=== PATIENT | male | born 1975 | race Caucasian/White ===

== ENCOUNTER 2016-09-06 19:18 | Emergency (ER) | payer BC ==
[2016-09-06 19:24] VITALS: BP 128/90
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
== END 2016-09-06 20:10 ==
LOC: ED 19:18
DX: Z04.1 Encounter for examination and observation following transport accident (principal); F17.220 Nicotine dependence, chewing tobacco, uncomplicated
CPT/HCPCS: 99282

== ENCOUNTER 2016-10-05 21:19 | Inpatient (IN) | payer SELFPAY ==
[2016-10-05 22:15] LABS: Hematocrit 48 % (42-52); Mean Corpuscular HGB Conc 33 g/dl (31-36); Mean Corpuscular Hemoglobin 33 pg (27-31); Mean Corpuscular Volume 99 fL (80-94); Mean Platelet Volume 8 um3 (7.4-10.4); Red Blood Count 4.88 10^6/ul (4.0-5.4); Red Cell Distribution Width 13 % (10.5-15); White Blood Count 10.3 10^3/ul (3.5-10.8)
[2016-10-05 22:25] LABS: Urine Bacteria Absent (Absent); Urine Bilirubin Negative (Negative); Urine Glucose Negative (Negative); Urine Nitrite Negative (Negative)
[2016-10-05 22:27] LABS: ALT 122 U/L (7-52); AST 107 U/L (13-39); Albumin 4.1 g/dL (3.2-5.2); Alkaline Phosphatase 80 U/L (34-104); Anion Gap 12 mmol/L (2-11); BUN/Creatinine Ratio 7.3 (8-20); Blood Urea Nitrogen 6 mg/dL (6-24); CO2 Carbon Dioxide 22 mmol/L (22-32); Calcium 9.1 mg/dL (8.6-10.3); Chloride 100 mmol/L (101-111); EGFR African American 131.9 (>60); EGFR Non-African American 102.5 (>60); Glucose 97 mg/dL (70-100); Potassium 3.6 mmol/L (3.5-5.0); Sodium 134 mmol/L (133-145); Total Protein 8.1 g/dL (6.4-8.9)
[2016-10-05 22:31] LABS: Benzodiazepine Urine Screen None Detected (None Detect)
[2016-10-05 22:46] LABS: Acetaminophen < 15 mcg/mL; Alcohol 182 mg/dL (<10); Salicylate < 2.50 mg/dL (<30)
[2016-10-05 22:57] LABS: TSH (Thyroid Stimulating Horm) 2.24 mcIU/mL (0.34-5.60)
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
[2016-10-06] MEDS ORDERED: LORazepam TAB(*) 1 MG PO ONE (06:15)
[2016-10-06] MEDS ORDERED: Ondansetron ODT TAB* 4 MG PO ONE (06:15)
[2016-10-06] MEDS ORDERED: Ondansetron ODT TAB* 4 MG ONE (06:16)
[2016-10-06] MEDS ORDERED: LORazepam TAB(*) 1 MG ONE (06:16)
--- NOTE | 2016-10-06 10:33 | ED ---
Beau Magaña Adam, scribed for Pedro Pablo Winters MD on 10/06/16 at 0943 . Progress - Progress Note Progress Note: This patient was signed out to me by Dr. Hand at 07:00. 09:30 - Patient signed voluntary admission to behavioral health unit. Condition: STABLE Course/Dx - Diagnoses Provider Diagnoses: Depression, Suicidal ideation, Acute alcohol intoxication The documentation as recorded by the Beau florence Adam accurately reflects the service I personally performed and the decisions made by me, Pedro Pablo Winters MD.
[2016-10-06] MEDS: Multivitamins/Minerals TAB PO SCH (10:55)
[2016-10-06] MEDS: Thiamine TAB* 100 MG TAB PO SCH (10:55)
[2016-10-06] MEDS: Folic Acid TAB* 1 MG PO SCH (10:55)
[2016-10-06] MEDS: LORazepam TAB(*) 1 MG PO SCH ×2 (10:56→18:10)
[2016-10-06] MEDS ORDERED: Venlafaxine EXT RELEASE CAP* 37.5 MG PO ONE (15:45)
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
[2016-10-07] MEDS: LORazepam TAB(*) 1 MG PO SCH ×5 (08:04→23:20)
[2016-10-07] MEDS: Acetaminophen TAB* 325 MG PO PRN ×3 (08:04→23:25)
[2016-10-07] MEDS: Folic Acid TAB* 1 MG PO SCH (08:05)
[2016-10-07] MEDS: Thiamine TAB* 100 MG TAB PO SCH (08:05)
[2016-10-07] MEDS: Multivitamins/Minerals TAB PO SCH (08:05)
[2016-10-07] MEDS ORDERED: Influenza VAC *QUAD* 2016-17* 0.5 ML SYRINGE IM ONE (09:00)
--- NOTE | 2016-10-07 17:11 | PN ---
Subjective - Subjective Service Type: 85438 Hosp care 15 min low complexity Objective - Appearance Appearance: Well Developed/Nourished Dysmorphic Features: No Hygiene: Normal Grooming: Disheveled - Behavior Psychomotor Activities: Abnormal-Decreased Exhibits Abnormal Movement: No - Attitude and Relatedness Attitude and Relatedness: Cooperative Eye Contact: Good - Speech Quality: Unpressured Latencies: Normal Quantity: Appropriate - Mood Patient's Decription of Mood: "Shaky" - Affect Observed Affect: Tense Affect Consistent with: Dysphoria - Thought Process Patient's Thought Process: Coherent, Goal Directed, Disorganized - mildly in context of alcohol withdrawal Thought Content: No Passive Wish, No Suicidal Planning, No Homicidal Ideation, No Paranoid Ideation - but reports excessive worries - Sensorium Experiencing Hallucinations: No, Sensorium is Clear Type of Hallucinations: Visual: No, Auditory: No, Command: No - Level of Consciousness Level of Consciousness: Lethargic Orientation: Yes Intact, Yes Orientated to Time, Yes Orientated to Place, Yes Orientated to Person - Impulse Control Impulse Control: Intact - Insight and Judgement Insight and Judgement: Fair - Group Participation Particating in Group Activities: No Group Participation Comments: alcohol withdrawal symptoms precluding participation - Medication Management Medication Management Adherence: Yes Assessment - Assessment Merits Inpatient Hospitalization: For Stabilization, Consolidate Improvements, For Discharge Planning Inpatient DSM-IV Dx: Major depressive disorder, recurrent, severe; alcohol use disorder, severe; cannabis use disorder; generalized anxiety disorder; rule out panic disorder; rule out agoraphobia. Clinical Impression: Juventino Ortiz is a 41-year-old father of four, who has been admitted due to report of suicidal ideation to cut himself with a knife at the end of a run of intensification of alcohol intoxication lasting for about a week atop months of chronic alcohol abuse. He has had multiple recent stressors including finalization of his divorce as the last of a series of setbacks starting with a DUI that he says stems from having used Ativan 3 days before the event and continuing to use Prozac through that event. He also lost his job in the interim between the DUI and the finalization of divorce. He is despairing about his future, but he does state that he wants to go to alcohol rehab services to reestablish sobriety and wants to move forward after that with treatment at [facility]. We have discussed antidepressant medications including return to nortriptyline or change to medication with less likelihood of lethality in overdose. We have decided upon Effexor as a reasonable trial, given its noradrenergic tone at higher doses, which may give similar efficacy as what he had with a tricyclic antidepressant. He reports that he has not done well on the Prozac he had been taking and feels odd on it. We will be encouraging him to make use of therapeutic milieu and groups. We will be gathering collateral from his brother in particular and from any others we may identify as able to clarify his safety concerns, his drinking patterns, his history, and so on. 10.07.16 Juventino still in active withdrawal from alcohol. Met with medicaid navigator, which will make aftercare fungible. Looking forward to rehab. Requests that we continue Effexor. Reports poor sleep. Plan - Plan Treatment Plan: Name: JUVENTINO ORTIZ Birthdate: 1975 [id number] Continue WAM. Start Effexor at low dose. Monitor MS and safety. Plan toward rehab at end of detox. Medications: Current Medications Acetaminophen (Tylenol Tab*) 650 mg PO Q4H PRN PRN Reason: PAIN Last Admin: 10/07/16 12:09 Dose: 650 mg Folic Acid (Folvite Tab*) 1 mg PO DAILY [facility] Last Admin: 10/07/16 08:05 Dose: 1 mg Lorazepam (Ativan Tab(*)) 0 mg PO .PER WAM SCORE [facility] PRN Reason: Protocol Last Admin: 10/07/16 15:14 Dose: 2 mg Multivitamins/Minerals (Theragran/Minerals Tab*) 1 tab PO DAILY [facility] Last Admin: 10/07/16 08:05 Dose: 1 tab Nicotine (Nicotine Inhaler*) 10 mg INH Q2H PRN PRN Reason: CRAVING Thiamine HCl (Vitamin B-1 Tab*) 100 mg PO DAILY [facility] Last Admin: 10/07/16 08:05 Dose: 100 mg - Discharge Plan Discharge Plan: Drug/Alcohol Rehab
[2016-10-07] MEDS ORDERED: Venlafaxine EXT RELEASE CAP* 37.5 MG PO ONE (17:18)
[2016-10-07] MEDS ORDERED: Mouth Piece, Nicotine* 1 EACH CARTRIDGE ONE (18:30)
[2016-10-07] MEDS: Nicotine Inhaler* 10 MG AMP INH PRN (18:31)
[2016-10-08] MEDS: LORazepam TAB(*) 1 MG PO SCH ×4 (07:45→21:25)
[2016-10-08] MEDS: Thiamine TAB* 100 MG TAB PO SCH (07:47)
[2016-10-08] MEDS: Folic Acid TAB* 1 MG PO SCH (07:47)
[2016-10-08] MEDS: Venlafaxine EXT RELEASE CAP* 37.5 MG PO SCH (07:47)
[2016-10-08] MEDS: Multivitamins/Minerals TAB PO SCH (07:47)
--- NOTE | 2016-10-08 08:56 | PN ---
Subjective - Subjective Service Type: [id number] Hosp care 15 min low complexity Subjective: Juventino reports feeling tired, vomited again this morning, is familiar with this as part of past alcohol withdrawal episodes. He says he feels he is starting to 'break through', but seemed confused when I asked him to explain. He agreed when I said it sounded like he was saying he was at a turning point in the detox process. He reports 'paranoia' as worrying about paying bills and other obligations he cannot attend to. Objective - Appearance Appearance: Well Developed/Nourished Dysmorphic Features: No Hygiene: Mal-odorous Grooming: Disheveled - Behavior Psychomotor Activities: Abnormal-Decreased - staying in bed Exhibits Abnormal Movement: No - Attitude and Relatedness Attitude and Relatedness: Cooperative Eye Contact: Good - Speech Quality: Unpressured Latencies: Normal Quantity: Terse - Mood Patient's Decription of Mood: "Tired... I think I'm starting to break through. I'm more sweaty." - Affect Observed Affect: Depressed Affect Consistent with: Dysphoria - Thought Process Patient's Thought Process: Coherent, Goal Directed Thought Content: No Passive Wish, No Suicidal Planning, No Homicidal Ideation, No Paranoid Ideation - worries reported as paranoia - Sensorium Experiencing Hallucinations: No, Sensorium is Clear Type of Hallucinations: Visual: No, Auditory: No, Command: No - Level of Consciousness Level of Consciousness: Alert Orientation: Yes Intact, Yes Orientated to Time, Yes Orientated to Place, Yes Orientated to Person - Impulse Control Impulse Control: Intact - Insight and Judgement Insight and Judgement: Fair - Group Participation Particating in Group Activities: No - Medication Management Medication Management Adherence: Yes Assessment - Assessment Merits Inpatient Hospitalization: For Immediate Safety, For Stabilization, For Discharge Planning, Pending Safe DC Plan Inpatient DSM-IV Dx: Major depressive disorder, recurrent, severe; alcohol use disorder, severe; cannabis use disorder; generalized anxiety disorder; rule out panic disorder; rule out agoraphobia. Clinical Impression: Juventino Ortiz is a 41-year-old father of four, who has been admitted due to report of suicidal ideation to cut himself with a knife at the end of a run of intensification of alcohol intoxication lasting for about a week atop months of chronic alcohol abuse. He has had multiple recent stressors including finalization of his divorce as the last of a series of setbacks starting with a DUI that he says stems from having used Ativan 3 days before the event and continuing to use Prozac through that event. He also lost his job in the interim between the DUI and the finalization of divorce. He is despairing about his future, but he does state that he wants to go to alcohol rehab services to reestablish sobriety and wants to move forward after that with treatment at [facility]. We have discussed antidepressant medications including return to nortriptyline or change to medication with less likelihood of lethality in overdose. We have decided upon Effexor as a reasonable trial, given its noradrenergic tone at higher doses, which may give similar efficacy as what he had with a tricyclic antidepressant. He reports that he has not done well on the Prozac he had been taking and feels odd on it. We will be encouraging him to make use of therapeutic milieu and groups. We will be gathering collateral from his brother in particular and from any others we may identify as able to clarify his safety concerns, his drinking patterns, his history, and so on. 4.4.17 Juvnetino still in active withdrawal from alcohol. Met with medicaid navigator, which will make aftercare fungible. Looking forward to rehab. Requests that we continue Effexor. Reports poor sleep. 4.5.17 Juventino is in active withdrawal and so too impaired still to attend groups. We have started Effexor XR 37.5 and will titrate upward in a couple days as he completes detox. He remains committed to rehab. Plan - Plan Treatment Plan: Name: JUVENTINO ORTIZ Birthdate: 1975 [id number] Continue WAM. Start Effexor at low dose. Monitor MS and safety. Plan toward rehab at end of detox. Medications: Current Medications Acetaminophen (Tylenol Tab*) 650 mg PO Q4H PRN PRN Reason: PAIN Last Admin: 10/07/16 23:25 Dose: 650 mg Folic Acid (Folvite Tab*) 1 mg PO DAILY [facility] Last Admin: 10/08/16 07:47 Dose: 1 mg Lorazepam (Ativan Tab(*)) 0 mg PO .PER WAM SCORE [facility] PRN Reason: Protocol Last Admin: 10/08/16 07:45 Dose: 2 mg Multivitamins/Minerals (Theragran/Minerals Tab*) 1 tab PO DAILY [facility] Last Admin: 10/08/16 07:47 Dose: 1 tab Nicotine (Nicotine Inhaler*) 10 mg INH Q2H PRN PRN Reason: CRAVING Last Admin: 10/07/16 18:31 Dose: 10 mg Thiamine HCl (Vitamin B-1 Tab*) 100 mg PO DAILY [facility] Last Admin: 10/08/16 07:47 Dose: 100 mg Venlafaxine HCl (Effexor Xr Cap*) 37.5 mg PO DAILY [facility] Last Admin: 10/08/16 07:47 Dose: 37.5 mg - Discharge Plan Discharge Plan: Drug/Alcohol Rehab
[2016-10-08] MEDS: Acetaminophen TAB* 325 MG PO PRN (12:00)
[2016-10-09] MEDS: LORazepam TAB(*) 1 MG PO SCH ×5 (05:20→20:42)
[2016-10-09] MEDS: Thiamine TAB* 100 MG TAB PO SCH (09:32)
[2016-10-09] MEDS: Folic Acid TAB* 1 MG PO SCH (09:32)
[2016-10-09] MEDS: Multivitamins/Minerals TAB PO SCH (09:32)
[2016-10-09] MEDS: Venlafaxine EXT RELEASE CAP* 37.5 MG PO SCH (09:32)
[2016-10-09] MEDS: Nicotine Inhaler* 10 MG AMP INH PRN ×3 (09:33→21:39)
--- NOTE | 2016-10-09 09:59 | PN ---
Subjective - Subjective Service Type: 55354 Hosp care 15 min low complexity Subjective: Gabriel reports continued anxiety, insomnia in context of active detox. Mood reported to be affected by this day the anniversary of learning in this hospital that his mother had just . Awoke in middle of night to hypnopompic hallucination that he was going out to get [place] beers. Feeling a little better today as detox progresses. Reports passive SI as children would be better off without him after what he has put them through. Objective - Appearance Appearance: Well Developed/Nourished, Healthy Appearing Dysmorphic Features: No Hygiene: Normal Grooming: Fairly Well Kept - Behavior Psychomotor Activities: Normal - which is improved from yesterday Exhibits Abnormal Movement: No - Attitude and Relatedness Attitude and Relatedness: Well Related Eye Contact: Good - Speech Quality: Unpressured Latencies: Normal Quantity: Appropriate - Mood Patient's Decription of Mood: "So so... it's a little melancholy." - Cites influence of recollection of this day as anniversary of mother's in this hospital. - Affect Observed Affect: Depressed Affect Consistent with: Dysphoria - Thought Process Patient's Thought Process: Coherent, Goal Directed Thought Content: Yes Passive Wish, No Suicidal Planning, No Homicidal Ideation, No Paranoid Ideation - Sensorium Experiencing Hallucinations: No, Sensorium is Clear Type of Hallucinations: Visual: No, Auditory: No, Command: No - Level of Consciousness Level of Consciousness: Alert Orientation: Yes Intact, Yes Orientated to Time, Yes Orientated to Place, Yes Orientated to Person - Group Participation Particating in Group Activities: No Group Participation Comments: declined AA last night, just attended community meeting today - Medication Management Medication Management Adherence: Yes Assessment - Assessment Merits Inpatient Hospitalization: For Immediate Safety, For Stabilization, For Discharge Planning, Pending Safe DC Plan Inpatient DSM-IV Dx: Major depressive disorder, recurrent, severe; alcohol use disorder, severe; cannabis use disorder; generalized anxiety disorder; rule out panic disorder; rule out agoraphobia. Clinical Impression: Juventino Ortiz is a 41-year-old father of four, who has been admitted due to report of suicidal ideation to cut himself with a knife at the end of a run of intensification of alcohol intoxication lasting for about a week atop months of chronic alcohol abuse. He has had multiple recent stressors including finalization of his divorce as the last of a series of setbacks starting with a DUI that he says stems from having used Ativan 3 days before the event and continuing to use Prozac through that event. He also lost his job in the interim between the DUI and the finalization of divorce. He is despairing about his future, but he does state that he wants to go to alcohol rehab services to reestablish sobriety and wants to move forward after that with treatment at [facility]. We have discussed antidepressant medications including return to nortriptyline or change to medication with less likelihood of lethality in overdose. We have decided upon Effexor as a reasonable trial, given its noradrenergic tone at higher doses, which may give similar efficacy as what he had with a tricyclic antidepressant. He reports that he has not done well on the Prozac he had been taking and feels odd on it. We will be encouraging him to make use of therapeutic milieu and groups. We will be gathering collateral from his brother in particular and from any others we may identify as able to clarify his safety concerns, his drinking patterns, his history, and so on. 4.4.17 Juventino still in active withdrawal from alcohol. Met with medicaid navigator, which will make aftercare fungible. Looking forward to rehab. Requests that we continue Effexor. Reports poor sleep. 4.5.17 Juventino is in active withdrawal and so too impaired still to attend groups. We have started Effexor XR 37.5 and will titrate upward in a couple days as he completes detox. He remains committed to rehab. 4.6.17 Gabriel reports impact of recall of mother's , melancholy today, with passive SI. Remains committed to rehab once detox complete and insurance established for it. Detoxing still, scoring on WAM. Will increase Effexor XR to 75 mg today. Prominent complaint of anxiety today in context of active detox. Plan - Plan Treatment Plan: Name: JUVENTINO ORTIZ Birthdate: 1975 [id number] Continue WAM and Effexor XR, increased 37.5 to 75 mg. Add clonidine 0.1 HS for insomnia/nightmares. Monitor MS and safety. Plan toward rehab at end of detox contingent on insurance in place. Medications: Current Medications Acetaminophen (Tylenol Tab*) 650 mg PO Q4H PRN PRN Reason: PAIN Last Admin: 10/08/16 12:00 Dose: 650 mg Folic Acid (Folvite Tab*) 1 mg PO DAILY [facility] Last Admin: 10/09/16 09:32 Dose: 1 mg Lorazepam (Ativan Tab(*)) 0 mg PO .PER WAM SCORE [facility] PRN Reason: Protocol Last Admin: 10/09/16 05:20 Dose: 2 mg Multivitamins/Minerals (Theragran/Minerals Tab*) 1 tab PO DAILY [facility] Last Admin: 10/09/16 09:32 Dose: 1 tab Nicotine (Nicotine Inhaler*) 10 mg INH Q2H PRN PRN Reason: CRAVING Last Admin: 10/09/16 09:33 Dose: 10 mg Thiamine HCl (Vitamin B-1 Tab*) 100 mg PO DAILY [facility] Last Admin: 10/09/16 09:32 Dose: 100 mg Venlafaxine HCl (Effexor Xr Cap*) 37.5 mg PO DAILY [facility] Last Admin: 10/09/16 09:32 Dose: 37.5 mg - Discharge Plan Discharge Plan: Drug/Alcohol Rehab
--- NOTE | 2016-10-09 14:07 | PN ---
[facility]: Group Therapy Note - Service Type Service Type: 59211 Group Psychotherapy - Cognitive Behavioral Group Therapy ( CBT):Patient was attentive and participatory in CBT programming this morning, and remained in good behavioral control. Patient expressed positive insights regarding relevant treatment interventions and goals.
[2016-10-09] MEDS: Acetaminophen TAB* 325 MG PO PRN (15:31)
[2016-10-10] MEDS: LORazepam TAB(*) 1 MG PO SCH (07:39)
[2016-10-10] MEDS: Thiamine TAB* 100 MG TAB PO SCH (08:42)
[2016-10-10] MEDS: Venlafaxine EXT RELEASE CAP* 37.5 MG PO SCH (08:42)
[2016-10-10] MEDS: Folic Acid TAB* 1 MG PO SCH (08:42)
[2016-10-10] MEDS: Multivitamins/Minerals TAB PO SCH (08:42)
[2016-10-10] MEDS: Nicotine Inhaler* 10 MG AMP INH PRN ×3 (11:13→22:43)
--- NOTE | 2016-10-10 12:47 | PN ---
Subjective - Subjective Service Type: 13752 Hosp care 15 min low complexity Subjective: Juventino reports doing "better." He notes subjective progress in terms of withdrawal severity. His outlook is "good" and he denies wishes or troubling emotional pain. He expresses motivation for rehab and sobriety - we explored his prior experiences and motivations. He was interested in medication for symptoms. We reviewed decision for off label clonidine use - I went over its profile and he reported prior good result with it. And he consented to gabapentin off label for anxiety, withdrawal, after review of its profile. Objective - Appearance Appearance: Obese Hygiene: Normal Grooming: Well Kept - Behavior Psychomotor Activities: Normal - Attitude and Relatedness Attitude and Relatedness: Cooperative Eye Contact: Good - Speech Quality: Unpressured Latencies: Normal Quantity: Appropriate - Mood Patient's Decription of Mood: "Anxious" - Affect Observed Affect: Tense Affect Consistent with: Dysphoria - mild - Thought Process Patient's Thought Process: Coherent Thought Content: No Passive Wish, No Suicidal Planning, No Homicidal Ideation, No Paranoid Ideation - Sensorium Experiencing Hallucinations: No, Sensorium is Clear - Level of Consciousness Level of Consciousness: Alert - Impulse Control Impulse Control: Intact - Insight and Judgement Insight and Judgement: Fair Assessment - Assessment Merits Inpatient Hospitalization: For Immediate Safety, For Stabilization, To Initiate Treatment, For Ongoing Evaluation, Consolidate Improvements, For Discharge Planning, Pending Safe DC Plan Inpatient DSM-IV Dx: Major depressive disorder, recurrent, severe; alcohol use disorder, severe; cannabis use disorder; generalized anxiety disorder; rule out panic disorder; rule out agoraphobia. Clinical Impression: 41 y/o male with history of prior psychiatric hospitalization, suicidal behavior , cerebrovascular event, concussions, and chronic severe substance use disorders. He was admitted after coming to the ED by car and reporting parasuicidal behavior in the setting of mood symptoms and impairing substance use pattern. Stabilizing here. Safe on checks, free of ongoing suicidal ideation. Mood symptoms and outlook are improving, impairment is reduced. Is progressing through alcohol withdrawal, with support via [facility] protocol. Medication mgt. started Effexor for depression, anxiety, and clonidine off label for sleep symptoms. And will start gabapentin off label for protracted withdrawal sxs and anxiety. Plan - Plan Treatment Plan: Name: JUVENTINO ORTIZ Birthdate: 1975 [id number] Continued Medication Management: Start Medication Medications: Current Medications Acetaminophen (Tylenol Tab*) 650 mg PO Q4H PRN PRN Reason: PAIN Last Admin: 10/09/16 15:31 Dose: 650 mg Folic Acid (Folvite Tab*) 1 mg PO DAILY [facility] Last Admin: 10/10/16 08:42 Dose: 1 mg Lorazepam (Ativan Tab(*)) 0 mg PO .PER WAM SCORE [facility] PRN Reason: Protocol Last Admin: 10/10/16 07:39 Dose: 3 mg Multivitamins/Minerals (Theragran/Minerals Tab*) 1 tab PO DAILY [facility] Last Admin: 10/10/16 08:42 Dose: 1 tab Nicotine (Nicotine Inhaler*) 10 mg INH Q2H PRN PRN Reason: CRAVING Last Admin: 10/10/16 11:13 Dose: 10 mg Thiamine HCl (Vitamin B-1 Tab*) 100 mg PO DAILY [facility] Last Admin: 10/10/16 08:42 Dose: 100 mg Venlafaxine HCl (Effexor Xr Cap*) 37.5 mg PO DAILY [facility] Last Admin: 10/10/16 08:42 Dose: 37.5 mg - Discharge Plan Discharge Plan: Drug/Alcohol Rehab
[2016-10-10] MEDS: Gabapentin CAP(*) 300 MG PO SCH ×2 (15:38→20:07)
[2016-10-10] MEDS: cloNIDine TAB* 0.1 MG PO SCH (20:07)
[2016-10-11] MEDS: Nicotine Inhaler* 10 MG AMP INH PRN ×6 (05:59→18:45)
[2016-10-11] MEDS: Gabapentin CAP(*) 300 MG PO SCH ×3 (08:09→20:07)
[2016-10-11] MEDS: Venlafaxine EXT RELEASE CAP* 37.5 MG PO SCH (08:09)
[2016-10-11] MEDS: Folic Acid TAB* 1 MG PO SCH (08:10)
[2016-10-11] MEDS: Multivitamins/Minerals TAB PO SCH (08:10)
[2016-10-11] MEDS: Thiamine TAB* 100 MG TAB PO SCH (08:10)
[2016-10-11] MEDS: cloNIDine TAB* 0.1 MG PO SCH (20:07)
[2016-10-12] MEDS: Nicotine Inhaler* 10 MG AMP INH PRN ×6 (05:41→20:05)
[2016-10-12] MEDS: Folic Acid TAB* 1 MG PO SCH (08:08)
[2016-10-12] MEDS: Thiamine TAB* 100 MG TAB PO SCH (08:08)
[2016-10-12] MEDS: Venlafaxine EXT RELEASE CAP* 37.5 MG PO SCH (08:09)
[2016-10-12] MEDS: Multivitamins/Minerals TAB PO SCH (08:09)
[2016-10-12] MEDS: Gabapentin CAP(*) 300 MG PO SCH ×3 (08:09→20:05)
--- NOTE | 2016-10-12 11:48 | PN ---
Subjective - Subjective Service Type: 16486 Hosp care 15 min low complexity Subjective: I reviewed Ami Montero's and Cassius's signout and notes since Thursday afternoon. Staff notes indicate 5+ hrs of sleep/night. We briefly reviewed events leading to hospitalization. His mood today is "better" and rates depression as 4-5/10 and anxiety as 8/10 (10 being the worst) . Notes poor sleep and requests to start a medication (trazodone caused GERD in the past). Notes some fatigue associated with gabapentin but denies other medication side effects. Appetite is "better." Is future oriented and we discussed plans in the coming weeks. He denies SI or thoughts of self-harm. He denies thoughts of harming others. He remains interested in Rehab. We discussed medication options for alcohol use d/o. Objective - Appearance Appearance: Well Developed/Nourished - overweight, tattoos. Found in milieu watching movie Dysmorphic Features: No Hygiene: Normal Grooming: Well Kept - Behavior Psychomotor Activities: Normal Exhibits Abnormal Movement: No - Attitude and Relatedness Attitude and Relatedness: Cooperative Eye Contact: Good - Speech Quality: Unpressured Latencies: Normal Quantity: Copious - Mood Patient's Decription of Mood: "better" - Affect Observed Affect: Tearful - when talking about events leading to hospitalization Affect Consistent with: Euthymia - with some depression - Thought Process Patient's Thought Process: Coherent Thought Content: No Passive Wish, No Suicidal Planning, No Homicidal Ideation, No Paranoid Ideation - Sensorium Experiencing Hallucinations: No, Sensorium is Clear - Level of Consciousness Level of Consciousness: Alert Orientation: Yes Intact, Yes Orientated to Time, Yes Orientated to Place, Yes Orientated to Person - Impulse Control Impulse Control: Intact - Insight and Judgement Insight and Judgement: Fair - Medication Management Medication Management Adherence: Yes - Additional Observations Comments: Vital Signs 10/11/16 10/11/16 10/11/16 12:45 14:09 16:07 Temperature Pulse Rate Respiratory 16 16 16 Rate Blood Pressure (mmHg) O2 Sat by Pulse Oximetry 10/11/16 10/12/16 10/12/16 20:07 07:17 08:01 Temperature 97.1 F Pulse Rate 62 Respiratory 16 16 16 Rate Blood Pressure 105/69 (mmHg) O2 Sat by Pulse 100 Oximetry 10/12/16 10/12/16 08:09 10:09 Temperature Pulse Rate Respiratory 16 16 Rate Blood Pressure (mmHg) O2 Sat by Pulse Oximetry Assessment - Assessment Merits Inpatient Hospitalization: Consolidate Improvements, For Discharge Planning, Pending Safe DC Plan Inpatient DSM-IV Dx: Major depressive disorder, recurrent, severe; alcohol use disorder, severe; cannabis use disorder; generalized anxiety disorder; rule out panic disorder; rule out agoraphobia. Clinical Impression: 41yo male with a hx of alcohol use and multiple psychosocial stressors d/o admitted for SI. He was started on an SNRI. Plan is to go to Rehab. Plan - Plan Treatment Plan: Name: SHAWN ORTIZ Birthdate: 1975 [id number] - continue SNRI - continue gabapentin for extended alcohol w/d - d/c WAM - d/c clonidine. Add mirtazapine 15mg po qhs. We discussed risks/side effects, he understands these risks, and consents to take the medication at this time. - start naltrexone 50mg daily for alcohol use d/o. He denies recent opioid use. We discussed risks/side effects, he understands these risks, and consents to take the medication at this time. To recheck CMP today. To d/c if LFTs increased and are not trending down - to go to Rehab Medications: Current Medications Acetaminophen (Tylenol Tab*) 650 mg PO Q4H PRN PRN Reason: PAIN Last Admin: 10/09/16 15:31 Dose: 650 mg Clonidine HCl (Catapres Tab*) 0.1 mg PO BEDTIME [facility] Last Admin: 10/11/16 20:07 Dose: 0.1 mg Folic Acid (Folvite Tab*) 1 mg PO DAILY [facility] Last Admin: 10/12/16 08:08 Dose: 1 mg Gabapentin (Neurontin Cap(*)) 300 mg PO TID [facility] Last Admin: 10/12/16 08:09 Dose: 300 mg Lorazepam (Ativan Tab(*)) 0 mg PO .PER WAM SCORE [facility] PRN Reason: Protocol Last Admin: 10/10/16 07:39 Dose: 3 mg Multivitamins/Minerals (Theragran/Minerals Tab*) 1 tab PO DAILY [facility] Last Admin: 10/12/16 08:09 Dose: 1 tab Nicotine (Nicotine Inhaler*) 10 mg INH Q2H PRN PRN Reason: CRAVING Last Admin: 10/12/16 10:11 Dose: 10 mg Thiamine HCl (Vitamin B-1 Tab*) 100 mg PO DAILY [facility] Last Admin: 10/12/16 08:08 Dose: 100 mg Venlafaxine HCl (Effexor Xr Cap*) 37.5 mg PO DAILY [facility] Last Admin: 10/12/16 08:09 Dose: 37.5 mg
[2016-10-12] MEDS ORDERED: Naltrexone (NF) 50 MG TAB PO SCH (13:00)
[2016-10-12 13:20] LABS: BUN/Creatinine Ratio 19.4 (8-20); Calcium 9.2 mg/dL (8.6-10.3); EGFR African American 107.4 (>60); EGFR Non-African American 83.5 (>60); Globulin 3.5 g/dL (2-4); Potassium 4.3 mmol/L (3.5-5.0); Total Bilirubin 0.6 mg/dL (0.2-1.0); Total Protein 7.5 g/dL (6.4-8.9)
[2016-10-12] MEDS ORDERED: Naltrexone (NF) 50 MG TAB PO ONE (14:45)
[2016-10-12] MEDS ORDERED: Mirtazapine TAB* 15 MG PO SCH (21:00)
[2016-10-13] MEDS: Nicotine Inhaler* 10 MG AMP INH PRN ×2 (06:13→08:33)
[2016-10-13] MEDS: Thiamine TAB* 100 MG TAB PO SCH (07:55)
[2016-10-13] MEDS: Venlafaxine EXT RELEASE CAP* 37.5 MG PO SCH (07:55)
[2016-10-13] MEDS: Multivitamins/Minerals TAB PO SCH (07:55)
[2016-10-13] MEDS: Gabapentin CAP(*) 300 MG PO SCH (07:55)
[2016-10-13] MEDS: Folic Acid TAB* 1 MG PO SCH (07:56)
--- NOTE | 2016-10-13 08:14 | PN ---
Subjective - Subjective Service Type: 70653 Hosp care 15 min low complexity Assessment - Assessment Inpatient DSM-IV Dx: Major depressive disorder, recurrent, severe; alcohol use disorder, severe; cannabis use disorder; generalized anxiety disorder; rule out panic disorder; rule out agoraphobia. Clinical Impression: 41 y/o male with history of prior psychiatric hospitalization, suicidal behavior , cerebrovascular event, concussions, and chronic severe substance use disorders. He was admitted after coming to the ED by car and reporting parasuicidal behavior in the setting of mood symptoms and impairing substance use pattern. Stabilizing here. Safe on checks, free of ongoing suicidal ideation. Mood symptoms and outlook are improving, impairment is reduced. Is progressing through alcohol withdrawal, with support via [facility] protocol. Medication mgt. started Effexor for depression, anxiety, and clonidine off label for sleep symptoms. And will start gabapentin off label for protracted withdrawal sxs and anxiety. Plan - Plan Treatment Plan: Name: SHAWN ORTIZ Birthdate: 1975 [id number] Medications: Current Medications Acetaminophen (Tylenol Tab*) 650 mg PO Q4H PRN PRN Reason: PAIN Last Admin: 10/09/16 15:31 Dose: 650 mg Folic Acid (Folvite Tab*) 1 mg PO DAILY [facility] Last Admin: 10/13/16 07:56 Dose: 1 mg Gabapentin (Neurontin Cap(*)) 300 mg PO TID [facility] Last Admin: 10/13/16 07:55 Dose: 300 mg Mirtazapine (Remeron Tab*) 15 mg PO BEDTIME [facility] Last Admin: 10/12/16 20:05 Dose: 15 mg Multivitamins/Minerals (Theragran/Minerals Tab*) 1 tab PO DAILY [facility] Last Admin: 10/13/16 07:55 Dose: 1 tab Nicotine (Nicotine Inhaler*) 10 mg INH Q2H PRN PRN Reason: CRAVING Last Admin: 10/13/16 06:13 Dose: 10 mg Thiamine HCl (Vitamin B-1 Tab*) 100 mg PO DAILY [facility] Last Admin: 10/13/16 07:55 Dose: 100 mg Venlafaxine HCl (Effexor Xr Cap*) 37.5 mg PO DAILY [facility] Last Admin: 10/13/16 07:55 Dose: 37.5 mg
--- NOTE | 2016-10-13 08:29 | DS ---
Subjective - Subjective Service Types: 91519 [facility] Day Mgmt simple under 30 min Discharge Date: 10/13/16 Subjective: Juventino denied setbacks over the weekend and reported feeling physically and mentally ready for rehab. He noted sustained improvements in mood and anxiety levels. We reviewed medication changes, and need for routine monitoring of his abnormal liver enzymes. Objective - Appearance Appearance: Obese Hygiene: Normal Grooming: Fairly Well Kept - Behavior Psychomotor Activities: Normal - Attitude and Relatedness Attitude and Relatedness: Cooperative Eye Contact: Good - Speech Quality: Unpressured Latencies: Normal Quantity: Terse - Mood Patient's Decription of Mood: "Fine" - Affect Observed Affect: Non-labile Affect Consistent with: Euthymia - Thought Process Patient's Thought Process: Coherent, Goal Directed Thought Content: No Passive Wish, No Suicidal Planning, No Homicidal Ideation, No Paranoid Ideation - Sensorium Experiencing Hallucinations: No, Sensorium is Clear - Level of Consciousness Level of Consciousness: Alert - Impulse Control Impulse Control: Intact - Insight and Judgement Insight and Judgement: Good Treatment Course & Assessment Clinical Course & Impression: 41 y/o male with history of prior psychiatric hospitalization, suicidal behavior , cerebrovascular event, concussions, and chronic severe substance use disorders. He was admitted after coming to the ED by car and reporting parasuicidal behavior in the setting of mood symptoms and impairing substance use pattern. 10/13/16 Clear for release. Appropriate for inpatient rehab now. 1. Behavior / symptoms: Juvetnino stabilized here. He was safe on checks, and consistently free of ongoing suicidal ideation. His mood symptoms, anxiety level, and outlook improved and he consolidated his gains. Acute impairment is corrected. 2. Medication management: Juventino received transient support with Ativan via [facility] protocol, and he progressed uneventfully through alcohol withdrawal. Psychiatric medication mgt. started Effexor for depression and anxiety, Remeron for augmentation and as sleep aid, and gabapentin off-label for protracted withdrawal symptoms and anxiety. 3. Medical: Juventino had liver enzymes several times the upper limit of normal at admission, which were repeated and still in same basic range a week later. I informally consulted hospitalist, Dr. Mcelroy, who said those values are normal for heavy drinkers and they could rise further, normally. She recommended to test acute Hepatitis Serology now, re-check liver panel (enzymes ) in one week, follow up Hepatitis serology, and arrange primary care evaluation following rehab. 4. Discharge disposition. Juventino was clearly in a substance induced crisis, and favorably accepted rehab referral and was accepted. Risk concern centered on his parasuicidal behavior and suicide risk. It is chronically elevated in a patient with his profile, with factors including organic injury, prior behavior, mood condition, substance use condition, and status loss/demographics. Acute risk of suicide is assessed as low currently due to patients low symptom burden, absence of acute impairing factors, and benign observed recent behavior and ideation. Resumed substance use could increase acute risk. Clear for Discharge: Adequate Clinical Respons, Acceptable Safety Profile, Low Utility of In Care Inpatient DSM-IV Dx: Major depressive disorder, recurrent, severe; alcohol use disorder, severe; cannabis use disorder; generalized anxiety disorder; rule out panic disorder; rule out agoraphobia. Discharge Planning - Discharge Planning Discharge Plan: Drug/Alcohol Rehab Recommendations for Continuing Care: Medication Management, Psychotherapy, Substance Abuse Counseling, Primary Care Followup - monitoring of liver function - followup of abnormal enzymes, review Serology at [facility] labs Medications: Current Medications Gabapentin (Neurontin Cap(*)) 300 mg PO TID [facility] Last Admin: 10/13/16 07:55 Dose: 300 mg Mirtazapine (Remeron Tab*) 15 mg PO BEDTIME [facility] Last Admin: 10/12/16 20:05 Dose: 15 mg Multivitamins/Minerals (Theragran/Minerals Tab*) 1 tab PO DAILY [facility] Last Admin: 10/13/16 07:55 Dose: 1 tab Nicotine (Nicotine Inhaler*) 10 mg INH Q2H PRN PRN Reason: CRAVING Last Admin: 10/13/16 06:13 Dose: 10 mg Thiamine HCl (Vitamin B-1 Tab*) 100 mg PO DAILY [facility] Last Admin: 10/13/16 07:55 Dose: 100 mg Venlafaxine HCl (Effexor Xr Cap*) 37.5 mg PO DAILY [facility] Last Admin: 10/13/16 07:55 Dose: 37.5 mg Discharge Planning: Prescriptions provided for discharge [] Yes [x] No Follow up care details as per social work arrangements. Patient response to discharge plan: [] eager for discharge [x] agreeable with discharge plan [] ambivalent about discharge [] disagrees with discharge today
[2016-10-13 08:36] VITALS: BP 119/68
== END 2016-10-13 09:05 | DRG 885 ==
LOC: ED 21:19 → BSU 10-06 10:44
PROVIDERS: ADMIT Psychiatry & Neurology Psychiatry; ATTEND Psychiatry & Neurology Psychiatry
DX: F33.2 Major depressive disorder, recurrent severe without psychotic features (principal); R45.851 Suicidal ideations; I10 Essential (primary) hypertension; F10.10 Alcohol abuse, uncomplicated; F12.10 Cannabis abuse, uncomplicated; Y90.6 Blood alcohol level of 120-199 mg/100 ml; F41.1 Generalized anxiety disorder; Z86.73 Personal history of transient ischemic attack (TIA), and cerebral infarction without residual deficits; Z79.2 Long term (current) use of antibiotics; Z79.899 Other long term (current) drug therapy
CPT/HCPCS: 36415; 80053; 80074; 80307; 80320; 80329; 81003; 81015; 84443; 85025; 87086; 90686; 90853; 99222; 99231; 99238; A9270-GY; G0480

== ENCOUNTER 2017-06-11 14:42 | Emergency (ER) | payer OTHER ==
[2017-06-11 15:29] LABS: Hemoglobin 15.6 g/dl (14.0-18.0); Mean Corpuscular HGB Conc 35 g/dl (31-36); Red Cell Distribution Width 13 % (10.5-15); White Blood Count 7.8 10^3/ul (3.5-10.8)
[2017-06-11 15:33] LABS: Hematocrit 45 % (42-52); Mean Corpuscular Hemoglobin 32 pg (27-31); Mean Corpuscular Volume 91 fL (80-94); Mean Platelet Volume 9 um3 (7.4-10.4); Red Blood Count 4.94 10^6/ul (4.0-5.4)
[2017-06-11 15:34] LABS: Comments Flag Yes
[2017-06-11 15:35] LABS: Venous Bicarbonate HCO3 23.9 mmol/L (24-28)
[2017-06-11] MEDS: NS 0.9% 1000 ML* 2,000 ML IV ONE ×2 (15:35→18:12)
[2017-06-11 15:42] LABS: Albumin 4.1 g/dL (3.2-5.2); BUN/Creatinine Ratio 12.1 (8-20); C Reactive Protein 11.82 mg/L (< 5.00); Calcium 8.9 mg/dL (8.6-10.3); EGFR African American 116.4 (>60); EGFR Non-African American 90.5 (>60); Globulin 3.3 g/dL (2-4); Potassium 3.6 mmol/L (3.5-5.0); Total Bilirubin 0.6 mg/dL (0.2-1.0); Total Protein 7.4 g/dL (6.4-8.9)
[2017-06-11 16:06] LABS: Urine Bilirubin Negative (Negative); Urine Glucose 3+(>=500 mg/dL) (Negative); Urine Nitrite Negative (Negative)
[2017-06-11] MEDS ORDERED: Insulin REGULAR(*) 1 UNITS UNIT IV PUSH ONE ×2 (16:12→18:05)
[2017-06-11] MEDS ORDERED: Ondansetron INJ* 2 MG/ML VIAL IV ONE (18:30)
[2017-06-11 20:37] VITALS: BP 130/88
--- NOTE | 2017-06-11 22:06 | CONS ---
[facility] MEDICINE CONSULTATION REPORT: DATE OF CONSULT: 06/11/17 - EMERGENCY DEPT PROVIDER: Ashley Sutherland NP ATTENDING PHYSICIAN: Dr. Hearn. CONSULTING PHYSICIAN: Dr. Radhames Howard. REASON FOR CONSULTATION: Evaluation for admission. HISTORY OF PRESENT ILLNESS: Mr. Stephens is a 42-year-old male that presented to the emergency room for further management of hyperglycemia. He states that he has had a 2-month history of increased nocturia, thirst, and fatigue and decreased appetite. He was seen by his primary care doctor, Dr. Eldridge on Thursday , 06/09/17 and diagnosed with diabetes. He was started on Lantus insulin 5 units in the a.m. and 10 units in the p.m. He states that his blood sugars have been as low as 225 and as high as 372 since he started checking them. He reports that he did see Dr. Eldridge today and his blood sugar in the office was 360 and so he sent him to the emergency room. He also reports that his hemoglobin A1c is 12.5. Mr. Stephens carries a past medical history that is significant for drug and alcohol abuse, which he received addiction recovery for. He states that he has been clean for 251 days now. He has a history of depression and anxiety. He denies any issues at this time with the depression or anxiety. During the current interview, he states that he is feeling better. He does complain of some mild lower abdominal tenderness. He denies any vomiting today. He reports he has had intermittent minimal amounts of diarrhea for the last several weeks. During his stay in the emergency room today, he did receive 16 units of regular insulin and his blood sugar decreased from 372 to 109 with his last Accu-Chek. PAST MEDICAL HISTORY: 1. Diabetes. 2. Alcohol abuse. 3. Drug abuse history and alcohol abuse history. 4. CVA in 2014. He does have visual deficits. 5. MRSA. He had that in his left knee in 2007. 6. Depression. 7. Anxiety. PAST SURGICAL HISTORY: 1. Left knee surgery. He had ACL reconstruction. He says that he has had several right and left knee surgeries in the past. 2. Appendectomy. MEDICATIONS: 1. Gabapentin. 2. Effexor. 3. Remeron. 4. Lantus 5 units in the a.m. and 10 units in the p.m. ALLERGIES: 1. VANCOMYCIN. 2. PROZAC. FAMILY HISTORY: Father had a significant history of coronary artery disease with an TX at 38 and 51. He did from his TX at age 51. Father also had diabetes type 1 diagnosed at age 12. Grandmother had type 1 diabetes diagnosed at age 35. SOCIAL HISTORY: He denies smoking, drug, or alcohol use. 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 REVIEW OF SYSTEMS: Constitutional: Denies fevers. Does report decreased appetite. Cardiac: No chest pain, no edema. Respiratory: Denies shortness of breath. Denies hemoptysis. He does report that he has an occasional cough that he has had for the last several months. GI: Positive for nausea. Denies vomiting. He has had a small amount of intermittent bouts of diarrhea on and off for the last few weeks. He does have some mild lower abdominal tenderness. : He denies hematuria. He does report frequency and urgency. Neuro: He has got no focal weakness or sensory loss. Eyes: He does state that he has progressively worsening visual changes since March. His last ophthalmology exam was in January. ENT: He denies difficulty swallowing. Musculoskeletal: Denies weakness. Skin: Denies rashes or lesions. He does complain of skin cracks on his bilateral heels. Psych: No psychosis or anxiety or depression. PHYSICAL EXAM: Vital signs are as follows: Blood pressure was 138/89, heart rate is sinus rhythm and in 80, respirations were 13, O2 sat was 97% on room air , temp on admission was 99.6. Conjunctivae are pink and moist. Pupils are equal and reactive. ENT: External ears and nose are normal. Lips are within normal. Dentition is good. Mucous membranes are mildly dry. Lymphatic: No cervical or supraclavicular lymphadenopathy. Cardiac: No murmurs, rubs, or gallops. He is in sinus rhythm in the 80s. Respiratory: Lung sounds are clear. No accessory muscle use. Abdomen is soft and nondistended. Bowel sounds are positive x4. He does have lower right and left quadrant tenderness with palpation. Musculoskeletal: There is no clubbing or cyanosis. He has got full range of motion to all extremities. Pedal pulses are +2 bilaterally. Radial pulses are +2 as well. Skin: There are no rashes and no abnormalities are seen. Plantar aspect of bilateral feet are noted to have dry cracking skin. Neuro: No focal deficits noted. He is alert and oriented. Mood is appropriate. No anxiety or depression is noted. DIAGNOSTIC STUDIES/LAB DATA: WBC is 7.8, RBC is 4.94, Hgb is 15.6, hematocrit is 45, platelet count is 195. Sodium was 133, potassium 3.6, chloride 101, carbon dioxide was 23, anion gap is 9, BUN is 11, creatinine is 0.91. Blood glucose on arrival to the ER was 372. After 16 units of insulin, his last blood sugar was 109. Calcium is 8.9. AST is 36, ALT is 56, alk phos was 96, albumin 4.1. C- reactive protein was 11.82. EKG showed sinus rhythm 83, no ST or T-wave changes. IMPRESSION AND PLAN: Mr. Stephens is a 42-year-old male that presented to emergency room today for evaluation of hyperglycemia to have a 2-month history of increased nocturia, thirst and fatigue and a decreased appetite. He was recently seen by his primary care doctor and diagnosed with diabetes, at which time he was started on Lantus insulin as noted in the HPI. His sugars remained uncontrolled, so he was sent to the emergency room for further evaluation. He is currently feeling well and better. I think at this time he is appropriate to be discharged home. Our recommendations are as follows: 1. Diabetes, uncontrolled hyperglycemia. Continue Lantus 5 units in the a.m. and increase night dose of Lantus to 12 units subcutaneous. I would recommend he follow up with his primary care doctor tomorrow. I also recommend that he setup an appointment with Endocrinology. He needs an evaluation from Podiatry for his dry and cracked heels. He also needs an evaluation from Ophthalmology due to the recent visual changes. 2. Alcohol abuse, currently being controlled with outpatient therapy. He has been cleaned for 251 days 3. Drug abuse. Currently pain controlled with outpatient therapy, has been cleaned for 251 days. 3. History of cerebrovascular accident, not a current issue. 4. History of depression. Currently taking Effexor. I recommend continue the Effexor at the current dose. 5. Anxiety. Continue treatment as per primary care. 6. Diet. I would recommend a carbohydrate consistent diet. 7. Disposition. I recommend he be discharged home and follow up with his primary care doctor tomorrow for further management of his diabetes. Instructed to return with any episodes of hypoglycemia and if unable to control hyperglycemia. Reports that he will have an responsible adult home with him this evening in the event he should have a diabetic emergency. The patient is in agreement with my current plan. He is fully aware of symptoms of hypoglycemia. TIME SPENT: Approximately 45 minutes was spent in this consultation of this patient, more than half that time was spent at the bedside reviewing events leading and thus far to admission to the emergency room, performing physical exam, and reviewing my plan of care. I have discussed my plan of care with my attending, Dr. Radhames Howard and he is in agreement with my plan. Dr. Lange, the emergency room attending was notified of my recommendations. ASHLEY SUTHERLAND, ADAMA [id number]/[facility] #: [id number] ELIAS
--- NOTE | 2017-06-13 18:43 | ED ---
Nicholas Magaña Angela, scribed for Pk Hearn MD on 06/11/17 at 1515 . HPI Diabetic - HPI Summary HPI Summary: This pt is a 42 y/o male presenting to [facility] for elevated glucose level. Pt has recently been diagnosed with IDDM 2 days ago. Pt was started on Lantus inuslin ( 5 units in the morning and 10 units at night), which he taken today. Pt denies eating anything today. He notes feeling fatigue, very thirsty, having increased urinary frequency (12 times at night), intermittent diarrhea (x2 days), abdominal discomfort. He reports the diarrhea is non-bloody. Pt denies cough, fever, nausea, vomiting. Pt denies recent long travel, recent antibiotics, sick contacts. Pt has not been eating as normal since yesterday. pt was referred to the ED by his PCP (Dr. Eldridge from [place]) for elevated glucose in the 300 range. - History Of Current Complaint Chief Complaint: EDDiabeticProb Time Seen by Provider: 06/11/17 14:55 Hx Obtained From: Patient Onset/Duration: Lasting Days - 1, Still Present Timing: Days - 1 Severity Currently: Moderate Associated Signs & Symptoms: Diarrhea - fatigue, abd discomfort, increased urinary frequenxy, thirsty, decreased PO intake Related History: DM I, Insulin Requiring - Allergies/Home Medications Allergies/Adverse Reactions: Allergies Allergy/AdvReac Type Severity Reaction Status Date / Time Vancomycin Allergy Severe See Comment Verified 06/21/16 17:22 PMH/Surg Hx/FS Hx/Imm Hx Endocrine/Hematology History: Reports: Hx Diabetes Denies: Hx Anticoagulant Therapy, Hx Systemic Lupus Erythematosus, Hx Thyroid Disease Cardiovascular History: Reports: Hx Hypertension Denies: Hx Congestive Heart Failure, Hx Pacemaker/ICD Respiratory History: Reports: Hx Seasonal Allergies Denies: Hx Asthma, Hx Chronic Obstructive Pulmonary Disease (COPD) GI History: Denies: Hx Gastroesophageal Reflux Disease, Hx Ulcer History: Denies: Hx Renal Disease Musculoskeletal History: Reports: Hx Orthopedic Injury - ALC resection, Other Musculoskeletal History - "I've had 17 knee surgerys" Denies: Hx Rheumatoid Arthritis Sensory History: Denies: Hx Contacts or Glasses, Hx Hearing Aid Opthamlomology History: Denies: Hx Contacts or Glasses Neurological History: Reports: Hx Migraine - as a child, Other Neuro Impairments /Disorders - concussions from football Psychiatric History: Reports: Hx Anxiety - situational? going through divorce, taking benzo + SSRI, Hx Depression, Hx Community Mental Health Tx, Hx Substance Abuse Denies: Hx Eating Disorder, Hx Panic Disorder, Hx of Violent Episodes Against Others - Cancer History Hx Chemotherapy: No - Surgical History Surgery Procedure, Year, and Place: APPENDIX 1985, ACL RECONSTRUCTION ON LEFT AND RIGHT KNEE AND , TUBES IN EARS 5+YRS AGO, ACL ON LEFT KNEE 2006 AND RIGHT KNEE 2004 (MULTIPLE ACL SURGERIES X5 EACH KNEE); - Immunization History Date of Tetanus Vaccine: 2013 Date of Influenza Vaccine: Fall 2013 Infectious Disease History: No Infectious Disease History: Reports: Hx of Known/Suspected MRSA - knee, Hx Shingles Denies: Hx Clostridium Difficile, Hx Hepatitis, Hx Human Immunodeficiency Virus (HIV), Hx Tuberculosis, Hx Known/Suspected VRE, Hx Known/Suspected VRSA, History Other Infectious Disease, Traveled Outside the [place] in Last 30 Days - Family History Known Family History: Positive: Cardiac Disease - [place] (father) - , Diabetes - Father - Social History Alcohol Use: Daily Alcohol Amount: Once Hx Substance Use: Yes Substance Use Type: Reports: Marijuana, Prescribed Substance Use Comment - Amount & Last Used: "a long time ago" took 4 tabs of 5 mg valium Hx Tobacco Use: No Smoking Status (MU): Never Smoked Tobacco Type: Smokeless Tobacco Amount Used/How Often: 1/2 can per day Length of Time of Smoking/Using Tobacco: 13 years Have You Smoked in the Last Year: No Review of Systems Constitutional: Other - very thirsty Positive: Fatigue. Negative: Fever, Chills Negative: Cough Gastrointestinal: Other - abd discomfort Positive: Diarrhea - intermittent. Negative: Vomiting, Nausea Positive: frequency - increased All Other Systems Reviewed And Are Negative: Yes Physical Exam - Summary Physical Exam Summary: VITAL SIGNS: Reviewed. GENERAL: Patient is a well-developed and nourished male who is lying comfortable in the stretcher. Patient is not in any acute respiratory distress. HEAD AND FACE: No signs of trauma. No ecchymosis, hematomas or skull depressions. No sinus tenderness. EYES: PERRLA, EOMI x 2, No injected conjunctiva, no nystagmus. EARS: Hearing grossly intact. Ear canals and tympanic membranes are within normal limits. MOUTH: Oropharynx within normal limits. NECK: Supple, trachea is midline, no adenopathy, no JVD, no carotid bruit, no c- spine tenderness, neck with full ROM. CHEST: Symmetric, no tenderness at palpation LUNGS: Clear to auscultation bilaterally. No wheezing or crackles. CVS: Regular rate and rhythm, S1 and S2 present, no murmurs or gallops appreciated. ABDOMEN: Soft, non-tender. No signs of distention. No rebound no guarding, and no masses palpated. Bowel sounds are normal. EXTREMITIES: FROM in all major joints, no edema, no cyanosis or clubbing. NEURO: Alert and oriented x 3. No acute neurological deficits. Speech is normal and follows commands. SKIN: Dry and warm Triage Information Reviewed: Yes Vital Signs On Initial Exam: Initial Vitals Temp Pulse Resp BP Pulse Ox 99.6 F 99 20 116/77 95 06/11/17 14:47 06/11/17 14:47 06/11/17 14:47 06/11/17 14:47 06/11/17 14:47 Vital Signs Reviewed: Yes Diagnostics - Vital Signs Vital Signs Temp Pulse Resp BP Pulse Ox 06/11/17 14:47 99.6 F 99 20 116/77 95 - Laboratory Result Diagrams: 06/11/17 15:15 06/11/17 15:15 Lab Statement: Any lab studies that have been ordered have been reviewed, and results considered in the medical decision making process. - EKG 1517 Cardiac Rate: NL EKG Rhythm: Sinus Rhythm - at 76 bpm EKG Interpretation: No ST elevation EKG Comparison: No Significant Change - unchanged from previous EKG done on 01/28. Diabetic Course/Dx - Course Assessment/Plan: This pt is a 42 y/o male presenting to [facility] for elevated glucose level. Pt has recently been diagnosed with IDDM 2 days ago. Pt was given insulin and has taken it today. Pt denies eating anything today. He notes feeling very thirsty, having increased urinary frequency (12 times at night), diarrhea (x2 days), abdominal discomfort. He reports the diarrhea is non- bloody. Pt denies cough, fever, nausea, vomiting. Pt denies recent long travel, recent antibiotics, sick contacts. Pt has not been eating as normal since yesterday. pt was referred to the ED by his PCP (Dr. Eldridge from [place]) for elevated glucose in the 300 range. Test results without any significant abnormalities except for glucose of 372, CRP of 11.8. Urinalysis is negative except for 3+ glucose. VBG shows pCO2 of 40, O2 saturation of 83.4. In the ED course the pt was given 2 liters of IV fluids and 8 units of insulin, and the glucose level decreased to 319. He was given 2 more liters of fluids and 8 units of insulin. I discussed the case with LAMONTE Martin from the hospitalist services. The pt still has increased sugar and is nauseous. He was given more fluids, more insulin and Zofran. I discussed the case with Damian Tyson and he will do a consult for this pt. At this point, I will sign out the pt to Dr. Lange to follow up on recommendations from the hospitalist services. - Diagnoses Provider Diagnoses: Uncontrolled diabetes mellitus - Physician Notifications Discussed Care Of Patient With: Damian Tyson Time Discussed With Above Provider: 18:35 Instructed by Provider To: Other - I discussed the case with LAMONTE Martin from the hospitalist services, who will consult on the pt. Discharge - Discharge Plan Condition: Good Disposition: HOME Discharge Disposition Comment: signed out to Dr. Lange, pending dispo, awaiting hospitatlist consult Prescriptions: Metformin HCl [Metformin HCl ER] 1,000 mg PO DAILY 90 Days #90 tab Patient Education Materials: Type 2 Diabetes in Adults (ED) Referrals: Boogie Watkins MD [Primary Care Provider] - Additional Instructions: check blood sugars AC with metformin and insulin blood sugars may go too low If hypoglycemia develops would decrease insulin first , continue metformin for nausea reduce dose of metformin The documentation as recorded by the Nicholas florence Angela accurately reflects the service I personally performed and the decisions made by me, Pk Hearn MD.
== END 2017-06-11 20:35 | disposition home or self-care (01) ==
LOC: ED 14:42
DX: E10.9 Type 1 diabetes mellitus without complications (principal); R53.83 Other fatigue; R19.7 Diarrhea, unspecified
CPT/HCPCS: 36415; 80053; 81003; 82550; 82803; 85025; 86140; 93005; 99284; J2405

== ENCOUNTER 2021-10-06 21:10 | Observation (INO) ==
[2021-10-06] MEDS ORDERED: Al Hydrox/Mg Hydrox/Simet LIQ 30 ML UDC PO ONE (21:56)
[2021-10-06 22:20] LABS: ABS Eosinophils 0.3 10^3/ul (0-0.6); ABS Lymphocytes 2.6 10^3/ul (1.0-4.8); ABS Monocytes 0.6 10^3/ul (0-0.8); ABS Neutrophils 4.2 10^3/ul (1.5-7.7); Eosinophil % 3.7 %; Hematocrit 46 % (42-52); Hemoglobin 16.1 g/dL (14.0-18.0); Lymphocyte % 33.7 %; Mean Corpuscular HGB Conc 35 g/dL (31-36); Mean Corpuscular Hemoglobin 35 pg (27-31); Mean Corpuscular Volume 100 fL (80-94); Mean Platelet Volume 8.2 fL (7.4-10.4); Nucleated Red Blood Cells % 0.1; Platelet Count 180 10^3/uL (150-450); Red Blood Count 4.56 10^6 /uL (4.18-5.48); Red Cell Distribution Width 13 % (10-15); White Blood Count 7.7 10^3/uL (3.5-10.8)
[2021-10-06 22:27] LABS: INR 1.14 (0.86-1.15)
[2021-10-06 22:44] LABS: Albumin 4.1 g/dL (3.2-5.2); Albumin/Globulin Ratio 1.2 (1-3); Globulin 3.4 g/dL (2-4); Potassium 3.7 mmol/L (3.5-5.0); Total Bilirubin 0.6 mg/dL (0.2-1.0); Total Protein 7.5 g/dL (6.4-8.9)
[2021-10-06 23:51] LABS: High Sensitivity Troponin 1 Hr 42 pg/mL (<20)
[2021-10-07] MEDS ORDERED: Enoxaparin 40 MG/0.4 ML SYR SUBCUT SCH (01:00)
[2021-10-07 06:45] LABS: Hepatitis B Surface Antigen Nonreactive (Nonreactive)
[2021-10-07 06:50] LABS: Hepatitis A Ab IgM Negative (Negative); Hepatitis B Core IgM Nonreactive (Nonreactive)
[2021-10-07 07:02] LABS: Hepatitis C Antibody Negative (Negative)
[2021-10-07] MEDS ORDERED: Venlafaxine XR 75 mg PO SCH (09:00)
[2021-10-07] MEDS ORDERED: Multivitamins/Minerals TAB PO SCH (09:00)
[2021-10-07] MEDS ORDERED: Regadenoson 0.4 MG/5 ML SYRINGE ONE (13:16)
[2021-10-07] MEDS ORDERED: Aminophylline 25 MG/ML VIAL ONE (13:16)
[2021-10-07] MEDS ORDERED: Dextrose 50% Syringe 50 ml 25 GM/50 ML SYRINGE IV PUSH PRN (15:13)
[2021-10-07 16:45] VITALS: BP 161/104
[2021-10-07 16:53] LABS: HDL Cholesterol 40.8 mg/dL
== END 2021-10-07 17:45 | disposition home or self-care (01) ==
LOC: EDHOLD 21:10 → ED 21:10 → MEDTELE 10-07 03:41
PROVIDERS: ADMIT Internal Medicine; ATTEND Internal Medicine